=== PATIENT | male | born 2000 ===

== ENCOUNTER → 2024-10-05 08:25 | Outpatient (BNVA) | payer OTHER, SELFPAY | PROVIDERS: Family Provider Pediatrics; PCP Pediatrics; Visit Provider Student in an Organized Health Care Education/Training Program | DX: L05.91 Pilonidal cyst without abscess (principal) | CPT/HCPCS: 99204 ==

== ENCOUNTER 2024-10-10 08:10 | Outpatient (CLI) | payer OTHER, SELFPAY ==
--- NOTE | 2024-10-10 08:13 | US_ITS ---
WS: [id number] TESTICULAR ULTRASOUND HISTORY: LUMP TO LEFT TESTES COMPARISON: None available. TECHNIQUE: Real-time and color Doppler imaging or utilized to perform a testicular ultrasound. Right testicle: 3.7 cm x 2.5 cm x 2.2 cm. Normal size and echogenicity. No mass or torsion. Normal color Doppler is present throughout. Systolic and diastolic velocities are both present. No significant hydrocele. Right epididymis: Normal epididymis with no increased vascularity. Left testicle: 3.4 cm x 2.3 cm x 2.1 cm. Normal size and echogenicity. No mass or torsion. Normal color Doppler is present throughout. Systolic and diastolic velocities are both present. There is a small slightly complex hydrocele. Within the hydrocele is a calcification. Left epididymis: Slightly enlarged epididymis with several small spermatoceles. The largest spermatoc trey 0.5 cm. No increased vascularity. US/US scrotum [id number] IMPRESSION: 1. No testicular mass or torsion. 2. Small mildly complex LEFT hydrocele. Within the hydrocele is a calcificatio n which is typically an incidental finding and may be from prior trauma or infe ction. 3. Small LEFT epididymal head spermatoceles.
== END 2024-10-10 08:11 | disposition home or self-care (01) ==
LOC: RAD 08:11
PROVIDERS: Family Provider Pediatrics; PCP Nurse Practitioner Family; Visit Provider Nurse Practitioner Family
DX: N50.89 Other specified disorders of the male genital organs (principal); N43.3 Hydrocele, unspecified; R93.89 Abnormal findings on diagnostic imaging of other specified body structures
CPT/HCPCS: 76870

== ENCOUNTER 2024-11-22 05:53 | Day surgery (SDC) | payer OTHER, SELFPAY ==
[2024-11-22] VITALS (11 sets, daily range): BP systolic 100–137; BP diastolic 62–91; PULSE 59–88; RESP 13–20; TEMP 36.1–36.8; O2SAT 94–97; BMI 34.0
--- NOTE | 2024-11-22 06:18 | ANES.PREANE2 ---
Pre-Anesthetic Assessment Height/Weight: Height 5 ft 9 in Weight 230 lb Temp Pulse Resp BP Pulse Ox O2 Del Method 97 F L 69 18 135/85 97 Room Air 11/22/24 06:03 11/22/24 06:03 11/22/24 06:03 11/22/24 06:03 11/22/24 06:03 11/22/24 06:03 Preop Diagnosis: Pilonidal cyst Operation Date: 11/22/24 07:00 Proposed Procedures p Pilonidal Cystectomy resection [facility] possible cleft lift [id number], L05.91(Not Applicable) - Yvan Oconnor MD Was Beta Debora taken within 24 hours: N/A Was Clonidine taken within 24 hours: N/A Last intake: Intake Last Liquid Date 11/21/24 Last Liquid Time 20:00 Last Solid Date 11/21/24 Last Solid Time 14:00 Social No alcohol and No tobacco Exam alert, oriented x 3, clear to auscultation bilaterally and regular rate & rhythm (Patient does have a enhanced S2 sound on auscultation) Airway Submandibular: within normal limits Cervical ROM: within normal limits Mallampati: Class III Dentition: full Anesthetic Plan ASA status: 1 Anesthesia: General Other: No prior issues with anesthesia but patient does state local anesthetics do not work on him NPO since yesterday evening Denies any pulmonary cardiac issues Active individual, METs greater than 4 Takes trazodone nightly to help him sleep Plan for GETA Medications/Allergies Home Medications ?Medication ?Instructions ?Recorded ?Confirmed ?Last Taken ?Type aripiprazole 20 mg tablet (Abilify) 20 mg PO QPM 10/05/24 11/21/24 11/20/24 History trazodone 100 mg tablet 50 mg PO BEDTIME 11/21/24 11/21/24 11/20/24 History Allergies Allergy/AdvReac Type Severity Reaction Status Date / Time No Known Allergies Allergy Verified 11/21/24 11:25 [facility] Anesthesia Social History Smoking and tobacco/nicotine status: never used tobacco/nicotine Data Anesthesia Cardiac Studies: No Data to Display
[2024-11-22] MEDS: sodium chloride 0.9% 1,000 ML 30 ML IV (06:20)
--- NOTE | 2024-11-22 06:59 | W.PM.OPSFHP ---
Same Day Surgery H&P Indication for Procedure/HPI DATE OF PROCEDURE: November 22, 2024 CHIEF COMPLAINT/INDICATIONFOR SURGICAL PROCEDURE: pilonidal cyst PREOP DIAGNOSIS: Pilonidal cyst PLANNED PROCEDURE: Operation Date: 11/22/24 07:00 Proposed Procedures p Pilonidal Cystectomy resection wih possible cleft lift [id number], L05.91(Not Applicable) - Yvan Oconnor MD Medications/Allergies* Home Medications ?Medication ?Instructions ?Recorded ?Confirmed ?Type aripiprazole 20 mg tablet (Abilify) 20 mg PO QPM 10/05/24 11/21/24 History trazodone 100 mg tablet 50 mg PO BEDTIME 11/21/24 11/21/24 History Allergies/Adverse Reactions Allergy/AdvReac Type Severity Reaction Status Date / Time No Known Allergies Allergy Verified 11/21/24 11:25 Current Medications: Generic Name Dose Route Start Last Admin Trade Name Freq PRN Reason Stop Dose Admin Sodium Chloride 1,000 mls @ 30 mls/hr 11/22/24 05:45 11/22/24 06:20 Sodium Chloride 0.9% IV 11/23/24 05:44 30 mls/hr .Q24H KEITH Administration Pertinent History/Comorbid Conditions* Social History Smoking and tobacco/nicotine status: never used tobacco/nicotine Pertinent Exam Findings alert, oriented x 3, clear to auscultation bilaterally, regular rate & rhythm and procedure specific exam findings Pilonidal cyst present Recommendations Surgery/Procedure today Other Plans: Discussed risks and benefits. Will proceed with pilonidal cyst excision. Coding Level of Care Code Acute Code for g Francheska
[2024-11-22] MEDS: ceFAZolin 2,000 mg SDV 2000 MG IVP (07:06)
[2024-11-22] MEDS: lidocaine-epi 1% 20 mL INJ 4 ML INJECTION (07:40)
[2024-11-22] MEDS: BUPivacaine 0.5% INJ 10 mL 4 ML INJECTION (07:40)
--- NOTE | 2024-11-22 07:44 | W.PM.BPON ---
Date of Procedure: 11/22/2024 Surgeon: Dr. Oconnor Poultry Feed Supervisor(s): N/A Procedure(s) performed: Pilonidal cyst excision Findings of the procedure(s): Excised pilonidal cyst in its entirety. Closed in multiple layers using 2-0 Vicryl off midline towards the left. Skin close multiple vertical mattress sutures using 3-0 nylon. Estimated blood loss: 10 cc Specimen(s) removed: Pilonidal cyst sent to pathology Post-operative diagnosis: Pilonidal cyst
--- NOTE | 2024-11-22 07:46 | PM.OP ---
Operative Report Date of procedure: November 22, 2024 Pre-op diagnosis: Pilonidal cyst Post-op diagnosis: same Post-op findings: 3 x 2 cm pilonidal cyst Procedure done: Pilonidal cyst resection Implants: N/A Specimens removed/disposition: Pilonidal cyst sent to pathology Pathology: Pilonidal cyst sent to pathology Surgeon: Yvan Oconnor MD Pharmaceutical Physician: N/A Anesthesia: General Estimated blood loss (mL): 10 Complications: N/A Findings: 2x1 cm pilonidal cyst resected down to fascia. Midline closed off-center towards the left. Brief History: 24-year-old male who presented with a pilonidal cyst. Discussed risk and benefits and patient agreed to proceed with pilonidal cyst resection. Procedure: After obtaining consent patient was brought into the operating room table. Preoperative antibiotics were administered. SCDs were on and functional. General anesthesia was induced. Patient was placed prone with adequate padding on all extremities. The perineum was prepped and draped in the usual sterile fashion. An elliptical incision was carried out around the pilonidal cyst. Electrocautery was used to dissect down to the level of fascia. The pilonidal cyst was excised in its entirety and sent off to pathology. It measured approximately 3 x 2 cm. The wound was irrigated and adequate hemostasis was achieved using electrocautery. The wound was closed off-center towards the left using multiple interrupted 2-0 Vicryl. Skin was closed with multiple vertical mattress sutures using 3-0 nylon. Gauze was used as fluffs. Mesh panties were used to secure the fluffs. The patient woke up from anesthesia without any complications and transferred to PACU.
--- NOTE | 2024-11-22 09:20 | ANE.PACU2 ---
Inpatient post-anesthesia follow up: Airway intact: Yes Vital signs: Temperature 98.2 F Pulse Rate 59 Respiratory Rate 18 Blood Pressure 114/70 Pulse Oximetry 95 Oxygen Delivery Me thod Room Air Oxygen Flow Rate Fraction of Inspir ed Oxygen Hydration adequate: Yes Nausea and vomiting: No Pain level: 1 Mental status: Baseline
== END 2024-11-22 09:20 | disposition home or self-care (01) ==
PROVIDERS: PCP Nurse Practitioner Family; Visit Provider Student in an Organized Health Care Education/Training Program
PROC: (CPT 11771; principal; 2024-11-22 07:00)
DX: L05.91 Pilonidal cyst without abscess (principal); Z79.899 Other long term (current) drug therapy
CPT/HCPCS: 11771; 88304; J0131; J0690; J1100; J1885; J2250; J2405; J2704; J3010; J3490; J7030

== ENCOUNTER → 2024-12-04 08:42 | Outpatient (BNVA) | payer OTHER, SELFPAY | PROVIDERS: Family Provider Pediatrics; PCP Pediatrics; Visit Provider Student in an Organized Health Care Education/Training Program | DX: L05.91 Pilonidal cyst without abscess (principal) | CPT/HCPCS: 99024 ==

== ENCOUNTER → 2024-12-11 09:40 | Outpatient (BNVA) | payer OTHER, SELFPAY | PROVIDERS: Family Provider Pediatrics; PCP Pediatrics; Visit Provider Student in an Organized Health Care Education/Training Program | DX: L05.91 Pilonidal cyst without abscess (principal) | CPT/HCPCS: 99024 ==